=== PATIENT | male | born 1985 | race Caucasian/White ===

== ENCOUNTER → 2017-02-19 | Emergency (ER) | payer OTHER ==
[~2017-02-19] MED LIST: IBUPROFEN 400 MG TABLET (FP) PO ONE; SODIUM CHLORIDE 1,000 ML IV STA
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
== END | disposition home or self-care (01) ==
LOC: JER 13:12
DX: T67.5XXA Heat exhaustion, unspecified, initial encounter (principal); M54.9 Dorsalgia, unspecified
CPT/HCPCS: 82375; 99281-25

== ENCOUNTER 2018-06-10 20:30 | Emergency (ER) | payer OTHER ==
--- NOTE | 2018-06-10 20:38 | PDOC ---
Rapid Medical Evaluation Time Seen by Provider: 06/10/18 20:35 Medical Evaluation: Allergies Allergy/AdvReac Type Severity Reaction Status Date / Time No Known Allergies Allergy Verified 02/01/15 01:19 06/10/18 20:36 I have performed a brief in-person evaluation of this patient. The patient presents with a chief complaint of pain in right shoulder. 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
[2018-06-10 21:12] VITALS: BP 122/95; PULSE 88; TEMP 98.1; BMI 24.3
[2018-06-10] MEDS ORDERED: IBUPROFEN 400 MG TABLET (FP) PO ONE (21:14)
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
== END 2018-06-10 21:34 | disposition home or self-care (01) ==
LOC: JERFT 20:30 → JER 20:30 → JERFT 21:34
DX: M25.511 Pain in right shoulder (principal); X58.XXXA Exposure to other specified factors, initial encounter; Y93.89 Activity, other specified; Y92.410 Unspecified street and highway as the place of occurrence of the external cause; Y99.0 Civilian activity done for income or pay
CPT/HCPCS: 73030-TC-RT-FY; 99281-25

== ENCOUNTER 2018-09-07 10:44 | Emergency (ER) | payer OTHER ==
[2018-09-07 10:53] VITALS: BP 109/72; PULSE 56; TEMP 98.4; BMI 24.3
[2018-09-07] MEDS ORDERED: IBUPROFEN 400 MG TABLET (FP) PO ONE ×2 (11:57→12:04)
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
== END 2018-09-07 12:08 | disposition home or self-care (01) ==
LOC: JERFT 10:44
DX: M54.5 Low back pain (principal); X58.XXXA Exposure to other specified factors, initial encounter; Y93.89 Activity, other specified; Y92.89 Other specified places as the place of occurrence of the external cause; Y99.0 Civilian activity done for income or pay
CPT/HCPCS: 99281-25

== ENCOUNTER 2021-08-17 18:27 | Emergency (ER) | payer OTHER ==
[2021-08-17 18:36] VITALS: BP 134/73; PULSE 70; TEMP 97.8; BMI 26.6
[2021-08-17] MEDS ORDERED: METHOCARBAMOL 500 MG TABLET PO ONE (19:25)
[2021-08-17] MEDS ORDERED: KETOROLAC TROMETHAMINE 30 MG/1 ML VIAL IM ONE (19:29)
[2021-08-17] MEDS ORDERED: KETOROLAC TROMETHAMINE 30 MG/1 ML VIAL ONE (19:30)
[2021-08-17] MEDS ORDERED: METHOCARBAMOL 500 MG TABLET ONE (19:30)
== END 2021-08-17 20:28 | disposition home or self-care (01) ==
LOC: JER 18:27
PROC: 3E0233Z Introduction of Anti-inflammatory into Muscle, Percutaneous Approach (ICD-10-PCS; principal; 2021-08-17)
DX: S33.5XXA Sprain of ligaments of lumbar spine, initial encounter (principal); M54.50 Low back pain, unspecified; X50.0XXA Overexertion from strenuous movement or load, initial encounter; Y93.89 Activity, other specified
CPT/HCPCS: 72100-TC-FY; 99284-25

== ENCOUNTER 2023-09-27 16:56 | Emergency (ER) | payer OTHER ==
[2023-09-27 17:04] VITALS: BP 141/81; PULSE 73; RESP 18; TEMP 98.3; BMI 24.3
[2023-09-27] MEDS ORDERED: ACETAMINOPHEN 500 MG TABLET (FP) PO ONE (17:24)
[2023-09-27] MEDS ORDERED: IBUPROFEN 600 MG TABLET (FP) PO ONE ×2 (17:24→17:34)
[2023-09-27] MEDS ORDERED: ONDANSETRON *ODT* 4 MG TABLET SL ONE (17:25)
[2023-09-27] MEDS ORDERED: ACETAMINOPHEN 500 MG TABLET (FP) ONE (17:35)
[2023-09-27] MEDS ORDERED: ONDANSETRON *ODT* 4 MG TABLET ONE (17:35)
== END 2023-09-27 18:10 | disposition home or self-care (01) ==
LOC: JERFT 16:56
DX: S06.0X0A Concussion without loss of consciousness, initial encounter (principal); M54.2 Cervicalgia; R11.0 Nausea; R41.89 Other symptoms and signs involving cognitive functions and awareness; W13.2XXA Fall from, out of or through roof, initial encounter; Y99.0 Civilian activity done for income or pay
CPT/HCPCS: 99283-25; Q0162